=== PATIENT | female | born 1960 | race Caucasian/White ===

== ENCOUNTER 2021-05-24 06:59 | Emergency (ER) | payer OTHER ==
[2021-05-24 17:25] LABS: SARS-CoV-2 PCR by NAA Not Detected (NotDetected)
== END 2021-05-24 10:48 | disposition home or self-care (01) ==
LOC: CSHERS 06:59
DX: R06.02 Shortness of breath (principal); I45.10 Unspecified right bundle-branch block; I44.4 Left anterior fascicular block; R50.9 Fever, unspecified; R05 Cough; E66.01 Morbid (severe) obesity due to excess calories; Z20.822 Contact with and (suspected) exposure to COVID-19
CPT/HCPCS: 71045; 93005; U0003; U0005

== ENCOUNTER 2022-11-12 11:36 | Inpatient (IN) | payer OTHER ==
[2022-11-12 12:16] LABS: #Eosinphils 0.2 10x3/uL (0.0-0.5); #Neutrophils 8.5 10x3/uL (1.5-8.4); %Basophils 0.2 % (0.0-2.0); %Eosinophils 2.2 % (0.0-6.0); %Lymphocytes 9.3 % (18.0-47.0); %Monocytes 9.5 % (0.0-10.0); Hemoglobin 9.3 g/dL (12.0-15.5); Mean Corpuscular HGB CONC 30.1 g/dL (32.0-36.0); Mean Corpuscular Hemoglobin 27.5 pg (27.0-33.0); Mean Corpuscular Volume 91.4 fl (81.6-98.3); Mean Platelet Volume 10.7 fl (7.4-10.4); Platelet Count 209 10x3/uL (150-450); RBC Distribution Width 14.7 % (11.5-14.5); Red Blood Cell (RBC) Count 3.38 10x6/uL (3.90-5.03); White Blood Cell (WBC) Count 10.9 10x3/uL (3.5-10.5)
[2022-11-12 12:29] LABS: ALT (SGPT) 21 U/L (8-55); AST (SGOT) 35 U/L (5-34); Albumin 3.3 g/dL (3.5-5.0); Alkaline Phosphatase 121 U/L (40-110); Anion Gap 20 mmol/L (10-20); BUN (Urea Nitrogen) 40 mg/dL (9.8-20.1); Bilirubin, Total 1.3 mg/dL (0.2-1.2); Calc. Creatinine Clearance 0 mL/min (70-130); Calcium 8.4 mg/dL (7.8-10.44); Carbon Dioxide 22 mmol/L (22-29); Chloride 97 mmol/L (98-107); Estimated GFR 25; Globulin 3.1 g/dL (2.4-3.5); Glucose 123 mg/dL (70-105); Potassium 4.2 mmol/L (3.5-5.1); Protein, Total 6.4 g/dL (6.0-8.3); Sodium 135 mmol/L (136-145)
[2022-11-12] MEDS ORDERED: Cefepime 2 GM VIAL ONE (12:53)
[2022-11-12] MEDS ORDERED: Vancomycin 1 GM VIAL ONE ×2 (12:55→14:13)
[2022-11-12] MEDS ORDERED: NOREPINEPHRINE 8 MG/250 ML-D5W 250 ML ONE (13:17)
[2022-11-12] MEDS ORDERED: Atropine Sulfate 1 mg/10 ml Syringe ONE (13:26)
[2022-11-12 15:01] LABS: Bilirubin 1+ (Negative); Blood, Urine Negative (Negative); Clarity Cloudy (Clear); Glucose, Urine (Dipstick) Normal (Negative); Ketone, Urine Negative (Negative); Leukocyte 100 (Negative); Nitrite Negative (Negative); Protein, Urine (Dipstick) 100 mg/dl (Neg-Trace)
[2022-11-12 15:08] LABS: Bacteria/HPF 1+ HPF (None Seen); Mucous/LPF 1+ LPF (<2+); RBC/HPF 0-3 HPF (0-3); Squamous Epithelial 0-3 HPF (0-3)
[2022-11-12 15:19] LABS: Lactic Acid 1.7 mmol/L (0.5-2.2)
[2022-11-12] MEDS ORDERED: NOREPINEPHRINE 8 MG/250 ML-D5W 250 ML IVPB PRN (15:37)
[2022-11-12] MEDS ORDERED: Levothyroxine Sodium 200 MCG VIAL IVP SCH (15:45)
[2022-11-12 15:50] LABS: SARS-CoV-2 NAA Rapid Test DETECTED (NotDetected)
[2022-11-12 16:12] LABS: Free T4 (Free Thyroxine) 1.07 ng/dL (0.70-1.48); Thyroid Stimulating Hormone 3.2591 uIU/mL (0.35-4.94)
[2022-11-12] MEDS ORDERED: Meropenem 1 GM in Sodium Chloride 0.9% 100 ML IVPB SCH (17:30)
[2022-11-12] MEDS: Albumin 25% 25 GM/100 ML BOT IVPB SCH (17:33)
[2022-11-12] MEDS: Furosemide 40 MG/4 ML VIAL SLOW IVP SCH (21:17)
[2022-11-12] MEDS: Hydrocortisone Sod Succ/PF 100 mg/2 ml Vial IVP SCH (21:17)
[2022-11-13] MEDS: Albumin 25% 25 GM/100 ML BOT IVPB SCH ×4 (00:32→22:48)
[2022-11-13] MEDS: Meropenem 1 GM in Sodium Chloride 0.9% 100 ML IVPB SCH ×3 (01:06→17:48)
[2022-11-13 04:15] LABS: #Monocytes 0.6 10x3/uL (0.0-1.1); #Neutrophils 11.7 10x3/uL (1.5-8.4); %Basophils 0.1 % (0.0-2.0); %Eosinophils 0.2 % (0.0-6.0); %Monocytes 4.7 % (0.0-10.0); %Neutrophils 89.4 % (40.0-75.0); Mean Corpuscular HGB CONC 30.8 g/dL (32.0-36.0); Mean Corpuscular Hemoglobin 27.4 pg (27.0-33.0); Mean Platelet Volume 10.8 fl (7.4-10.4); Platelet Count 252 10x3/uL (150-450); RBC Distribution Width 14.9 % (11.5-14.5); Red Blood Cell (RBC) Count 3.65 10x6/uL (3.90-5.03); White Blood Cell (WBC) Count 13.1 10x3/uL (3.5-10.5)
[2022-11-13 04:29] LABS: ALT (SGPT) 36 U/L (8-55); AST (SGOT) 50 U/L (5-34); Albumin 3.7 g/dL (3.5-5.0); Alkaline Phosphatase 138 U/L (40-110); Anion Gap 16 mmol/L (10-20); BUN (Urea Nitrogen) 42 mg/dL (9.8-20.1); Calc. Creatinine Clearance 91 mL/min (70-130); Calcium 9.2 mg/dL (7.8-10.44); Carbon Dioxide 25 mmol/L (22-29); Chloride 97 mmol/L (98-107); Estimated GFR 27; Globulin 3.6 g/dL (2.4-3.5); Glucose 194 mg/dL (70-105); Potassium 4.4 mmol/L (3.5-5.1); Protein, Total 7.3 g/dL (6.0-8.3); Sodium 134 mmol/L (136-145)
[2022-11-13] MEDS: Hydrocortisone Sod Succ/PF 100 mg/2 ml Vial IVP SCH ×3 (05:59→21:22)
[2022-11-13] MEDS ORDERED: Levothyroxine 100 MCG SDV IVP SCH (06:00)
[2022-11-13] MEDS: Furosemide 40 MG/4 ML VIAL SLOW IVP SCH ×2 (08:31→21:21)
[2022-11-13] MEDS ORDERED: Docusate 100 MG CAP PO PRN (17:27)
[2022-11-13] MEDS ORDERED: Diclofenac 1% 100 GM GEL TP PRN (18:07)
[2022-11-13] MEDS: Gabapentin 300 MG CAP PO SCH (21:20)
[2022-11-13] MEDS: Atorvastatin Calcium 20 MG TAB PO SCH (21:20)
[2022-11-13] MEDS: Acetaminophen/Codeine 30-300mg Tablet PO PRN (21:20)
[2022-11-13] MEDS: Benzonatate 100 MG CAP PO PRN (22:48)
[2022-11-13] MEDS ORDERED: Bisacodyl 10 MG SUPP PR SCH (23:45)
[2022-11-14] MEDS: Meropenem 1 GM in Sodium Chloride 0.9% 100 ML IVPB SCH ×2 (02:13→10:46)
[2022-11-14 04:05] LABS: ALT (SGPT) 24 U/L (8-55); AST (SGOT) 27 U/L (5-34); Albumin 3.7 g/dL (3.5-5.0); Alkaline Phosphatase 105 U/L (40-110); Anion Gap 17 mmol/L (10-20); BUN (Urea Nitrogen) 40 mg/dL (9.8-20.1); Bilirubin, Total 0.8 mg/dL (0.2-1.2); Calc. Creatinine Clearance 119 mL/min (70-130); Calcium 9.1 mg/dL (7.8-10.44); Carbon Dioxide 26 mmol/L (22-29); Chloride 98 mmol/L (98-107); Estimated GFR 37; Globulin 3.4 g/dL (2.4-3.5); Glucose 213 mg/dL (70-105); Potassium 4.5 mmol/L (3.5-5.1); Protein, Total 7.1 g/dL (6.0-8.3); Sodium 136 mmol/L (136-145)
[2022-11-14 04:11] LABS: #Monocytes 0.6 10x3/uL (0.0-1.1); #Neutrophils 8.1 10x3/uL (1.5-8.4); %Basophils 0.1 % (0.0-2.0); %Lymphocytes 4.8 % (18.0-47.0); %Monocytes 6.1 % (0.0-10.0); %Neutrophils 87.9 % (40.0-75.0); Hemoglobin 9.7 g/dL (12.0-15.5); Mean Corpuscular HGB CONC 31.2 g/dL (32.0-36.0); Mean Corpuscular Hemoglobin 27.7 pg (27.0-33.0); Mean Corpuscular Volume 88.9 fl (81.6-98.3); Mean Platelet Volume 10.8 fl (7.4-10.4); Platelet Count 192 10x3/uL (150-450); RBC Distribution Width 14.8 % (11.5-14.5); White Blood Cell (WBC) Count 9.2 10x3/uL (3.5-10.5)
[2022-11-14] MEDS: Hydrocortisone Sod Succ/PF 100 mg/2 ml Vial IVP SCH (05:10)
[2022-11-14] MEDS: Albumin 25% 25 GM/100 ML BOT IVPB SCH ×3 (05:10→17:40)
[2022-11-14] MEDS: Aspirin 81 mg Enteric Coated Tablet PO SCH (08:03)
[2022-11-14] MEDS: Gabapentin 300 MG CAP PO SCH ×3 (08:03→22:40)
[2022-11-14] MEDS: Loratadine 10 MG TAB PO SCH (08:03)
[2022-11-14] MEDS: Sertraline 100 MG TAB PO SCH (08:03)
[2022-11-14] MEDS: Ascorbic Acid 500 mg Chewable Tablet PO SCH (08:03)
[2022-11-14] MEDS: Polyethylene Glycol 3350 17 GM Packet PO SCH (08:04)
[2022-11-14] MEDS: Furosemide 40 MG/4 ML VIAL SLOW IVP SCH ×2 (08:06→22:39)
[2022-11-14] MEDS ORDERED: Lansoprazole 3 MG/ML ORAL SUSPENSION PO SCH (09:00)
[2022-11-14] MEDS: Aripiprazole 10 MG TAB PO SCH (10:07)
[2022-11-14] MEDS: Benzonatate 100 MG CAP PO PRN ×2 (10:07→22:42)
[2022-11-14] MEDS ORDERED: Dextrose 5% in Water 1,000 ML IV PRN (17:24)
[2022-11-14] MEDS ORDERED: Dextrose 50% Abboject 50 ML SYRINGE SLOW IVP PRN (17:24)
[2022-11-14] MEDS ORDERED: HumaLOG 300 UNITS/3 ML VIAL SC PRN (17:24)
[2022-11-14] MEDS: Atorvastatin Calcium 20 MG TAB PO SCH (22:40)
[2022-11-14] MEDS: Acetaminophen/Codeine 30-300mg Tablet PO PRN (22:40)
[2022-11-15] MEDS: Benzonatate 100 MG CAP PO PRN ×2 (05:40→21:51)
[2022-11-15 07:50] LABS: #Eosinphils 0.1 10x3/uL (0.0-0.5); #Monocytes 0.7 10x3/uL (0.0-1.1); #Neutrophils 6.8 10x3/uL (1.5-8.4); %Basophils 0.1 % (0.0-2.0); %Lymphocytes 7.6 % (18.0-47.0); %Monocytes 8.7 % (0.0-10.0); %Neutrophils 81.3 % (40.0-75.0); Hemoglobin 9.5 g/dL (12.0-15.5); Mean Corpuscular HGB CONC 29.6 g/dL (32.0-36.0); Mean Corpuscular Hemoglobin 27.5 pg (27.0-33.0); Mean Corpuscular Volume 92.8 fl (81.6-98.3); Platelet Count 232 10x3/uL (150-450); RBC Distribution Width 15.1 % (11.5-14.5); Red Blood Cell (RBC) Count 3.46 10x6/uL (3.90-5.03); White Blood Cell (WBC) Count 8.3 10x3/uL (3.5-10.5)
[2022-11-15 08:13] LABS: ALT (SGPT) 21 U/L (8-55); AST (SGOT) 18 U/L (5-34); Albumin 4.3 g/dL (3.5-5.0); Alkaline Phosphatase 103 U/L (40-110); Anion Gap 14 mmol/L (10-20); BUN (Urea Nitrogen) 39 mg/dL (9.8-20.1); Bilirubin, Total 0.6 mg/dL (0.2-1.2); Calc. Creatinine Clearance 133 mL/min (70-130); Calcium 9.6 mg/dL (7.8-10.44); Carbon Dioxide 32 mmol/L (22-29); Chloride 99 mmol/L (98-107); Estimated GFR 42; Globulin 3.4 g/dL (2.4-3.5); Glucose 156 mg/dL (70-105); Protein, Total 7.7 g/dL (6.0-8.3); Sodium 141 mmol/L (136-145)
[2022-11-15] MEDS: Gabapentin 300 MG CAP PO SCH ×3 (08:29→21:41)
[2022-11-15] MEDS: Loratadine 10 MG TAB PO SCH (08:30)
[2022-11-15] MEDS: Furosemide 40 MG/4 ML VIAL SLOW IVP SCH (08:30)
[2022-11-15] MEDS: Dexamethasone 4 MG TAB PO SCH (08:30)
[2022-11-15] MEDS: Ascorbic Acid 500 mg Chewable Tablet PO SCH (08:30)
[2022-11-15] MEDS: Aripiprazole 10 MG TAB PO SCH (08:35)
[2022-11-15] MEDS: Aspirin 81 mg Enteric Coated Tablet PO SCH (08:35)
[2022-11-15] MEDS: Sertraline 100 MG TAB PO SCH (08:36)
[2022-11-15] MEDS: Polyethylene Glycol 3350 17 GM Packet PO SCH (08:37)
[2022-11-15 09:01] LABS: Hypochromia SLIGHT = 6-15 cells (100X) (0-5/hpf); Macrocytosis SLIGHT = 6-15 cells (100X) (0-5/hpf); Ovalocytes SLIGHT = 2-5 cells (100X) (0-1/hpf)
[2022-11-15 09:02] LABS: Polychromasia SLIGHT = 2-3 cells (100X) (0-2/hpf)
[2022-11-15 09:03] LABS: Platelet Morphology Comment Appears Adequate
[2022-11-15] MEDS: HumaLOG 300 UNITS/3 ML VIAL SC PRN (16:58)
[2022-11-15] MEDS: Atorvastatin Calcium 20 MG TAB PO SCH (21:41)
[2022-11-15] MEDS: Guaifenesin DM 100-10/5 ML UDCUP PO PRN (23:38)
[2022-11-16 05:09] LABS: ALT (SGPT) 18 U/L (8-55); AST (SGOT) 18 U/L (5-34); Albumin 3.7 g/dL (3.5-5.0); Alkaline Phosphatase 97 U/L (40-110); Anion Gap 13 mmol/L (10-20); BUN (Urea Nitrogen) 37 mg/dL (9.8-20.1); Bilirubin, Total 0.6 mg/dL (0.2-1.2); Calc. Creatinine Clearance 178 mL/min (70-130); Calcium 9.3 mg/dL (7.8-10.44); Carbon Dioxide 32 mmol/L (22-29); Chloride 100 mmol/L (98-107); Estimated GFR 59; Globulin 3.1 g/dL (2.4-3.5); Glucose 222 mg/dL (70-105); Potassium 4.4 mmol/L (3.5-5.1); Protein, Total 6.8 g/dL (6.0-8.3); Sodium 141 mmol/L (136-145)
[2022-11-16 05:21] LABS: Hemoglobin 8.8 g/dL (12.0-15.5); Mean Corpuscular HGB CONC 30.1 g/dL (32.0-36.0); Mean Corpuscular Hemoglobin 27.9 pg (27.0-33.0); Mean Corpuscular Volume 92.7 fl (81.6-98.3); Mean Platelet Volume 9.9 fl (7.4-10.4); Platelet Count 221 10x3/uL (150-450); RBC Distribution Width 15.4 % (11.5-14.5); Red Blood Cell (RBC) Count 3.15 10x6/uL (3.90-5.03); White Blood Cell (WBC) Count 6.5 10x3/uL (3.5-10.5)
[2022-11-16 05:29] VITALS: BMI 69.9
[2022-11-16 05:33] LABS: MDiff Complete? YES
[2022-11-16 06:50] LABS: Eosinophils 1 % (0-10); Lymphocytes 4 % (21-51); Monocytes 15 % (0-10); Neutrophil 80 % (42-75)
[2022-11-16 06:53] LABS: Hypochromia SLIGHT = 6-15 cells (100X) (0-5/hpf); Macrocytosis SLIGHT = 6-15 cells (100X) (0-5/hpf); Platelet Morphology Comment Appears Adequate
[2022-11-16] MEDS: Gabapentin 300 MG CAP PO SCH ×3 (08:38→20:22)
[2022-11-16] MEDS: Loratadine 10 MG TAB PO SCH (08:39)
[2022-11-16] MEDS: Ascorbic Acid 500 mg Chewable Tablet PO SCH (08:39)
[2022-11-16] MEDS: Aripiprazole 10 MG TAB PO SCH (08:39)
[2022-11-16] MEDS: Sertraline 100 MG TAB PO SCH (08:39)
[2022-11-16] MEDS: Dexamethasone 4 MG TAB PO SCH (08:39)
[2022-11-16] MEDS: Furosemide 40 MG TAB PO SCH (08:40)
[2022-11-16] MEDS: Aspirin 81 mg Enteric Coated Tablet PO SCH (08:40)
[2022-11-16] MEDS: Polyethylene Glycol 3350 17 GM Packet PO SCH (08:40)
[2022-11-16] MEDS: HumaLOG 300 UNITS/3 ML VIAL SC PRN ×2 (12:58→19:30)
[2022-11-16] MEDS: Guaifenesin DM 100-10/5 ML UDCUP PO PRN (20:22)
[2022-11-16] MEDS: Atorvastatin Calcium 20 MG TAB PO SCH (20:22)
[2022-11-17 05:07] LABS: #Monocytes 0.7 10x3/uL (0.0-1.1); #Neutrophils 7.1 10x3/uL (1.5-8.4); %Basophils 0.1 % (0.0-2.0); %Lymphocytes 5.7 % (18.0-47.0); %Monocytes 8.3 % (0.0-10.0); %Neutrophils 81.5 % (40.0-75.0); Hemoglobin 8.6 g/dL (12.0-15.5); Mean Corpuscular HGB CONC 29.2 g/dL (32.0-36.0); Mean Corpuscular Hemoglobin 27.3 pg (27.0-33.0); Mean Corpuscular Volume 93.7 fl (81.6-98.3); Mean Platelet Volume 9.9 fl (7.4-10.4); Platelet Count 231 10x3/uL (150-450); RBC Distribution Width 15.7 % (11.5-14.5); Red Blood Cell (RBC) Count 3.15 10x6/uL (3.90-5.03); White Blood Cell (WBC) Count 8.7 10x3/uL (3.5-10.5)
[2022-11-17 05:12] LABS: ALT (SGPT) 16 U/L (8-55); AST (SGOT) 16 U/L (5-34); Albumin 3.8 g/dL (3.4-4.8); Alkaline Phosphatase 91 U/L (40-110); Anion Gap 15 mmol/L (10-20); BUN (Urea Nitrogen) 35 mg/dL (9.8-20.1); Bilirubin, Total 0.6 mg/dL (0.2-1.2); Calc. Creatinine Clearance 181 mL/min (70-130); Calcium 9.3 mg/dL (7.8-10.44); Carbon Dioxide 33 mmol/L (23-31); Chloride 99 mmol/L (98-107); Estimated GFR 61; Globulin 2.9 g/dL (2.4-3.5); Glucose 253 mg/dL (80-115); Potassium 4.9 mmol/L (3.5-5.1); Protein, Total 6.7 g/dL (5.8-8.1); Sodium 142 mmol/L (136-145)
[2022-11-17] MEDS: Guaifenesin DM 100-10/5 ML UDCUP PO PRN (05:15)
[2022-11-17 07:04] LABS: Hypochromia SLIGHT = 6-15 cells (100X) (0-5/hpf); Macrocytosis SLIGHT = 6-15 cells (100X) (0-5/hpf); Microcytosis SLIGHT = 6-15 cells (100X) (0-5/hpf); Ovalocytes SLIGHT = 2-5 cells (100X) (0-1/hpf); Schistocytes SLIGHT = 2-5 cells (100X) (0-1/hpf)
[2022-11-17 07:05] LABS: Platelet Morphology Comment Appears Adequate; Stomatocytes SLIGHT = 2-5 cells (100X) (0-1/hpf)
[2022-11-17] MEDS: Acetaminophen/Codeine 30-300mg Tablet PO PRN (07:14)
[2022-11-17] MEDS: Benzonatate 100 MG CAP PO PRN (07:14)
[2022-11-17] MEDS ORDERED: Lantus 1000 UNITS/10 ML VIAL SC SCH (07:45)
[2022-11-17] MEDS: Gabapentin 300 MG CAP PO SCH ×3 (10:55→22:09)
[2022-11-17] MEDS: Aspirin 81 mg Enteric Coated Tablet PO SCH (10:56)
[2022-11-17] MEDS: Aripiprazole 10 MG TAB PO SCH (10:56)
[2022-11-17] MEDS: Dexamethasone 4 MG TAB PO SCH (10:57)
[2022-11-17] MEDS: Furosemide 40 MG TAB PO SCH (10:57)
[2022-11-17] MEDS: Sertraline 100 MG TAB PO SCH (10:57)
[2022-11-17] MEDS: Ascorbic Acid 500 mg Chewable Tablet PO SCH (10:57)
[2022-11-17] MEDS: Loratadine 10 MG TAB PO SCH (10:57)
[2022-11-17] MEDS: Polyethylene Glycol 3350 17 GM Packet PO SCH (10:58)
[2022-11-17] MEDS: Atorvastatin Calcium 20 MG TAB PO SCH (22:25)
[2022-11-18 05:41] LABS: #Monocytes 0.6 10x3/uL (0.0-1.1); #Neutrophils 8.7 10x3/uL (1.5-8.4); %Basophils 0.1 % (0.0-2.0); %Lymphocytes 6.9 % (18.0-47.0); %Monocytes 5.7 % (0.0-10.0); %Neutrophils 83.7 % (40.0-75.0); Hemoglobin 7.8 g/dL (12.0-15.5); Mean Corpuscular HGB CONC 29.4 g/dL (32.0-36.0); Mean Corpuscular Hemoglobin 27.3 pg (27.0-33.0); Mean Corpuscular Volume 92.7 fl (81.6-98.3); Mean Platelet Volume 10.2 fl (7.4-10.4); Platelet Count 213 10x3/uL (150-450); RBC Distribution Width 15.8 % (11.5-14.5); Red Blood Cell (RBC) Count 2.86 10x6/uL (3.90-5.03); White Blood Cell (WBC) Count 10.4 10x3/uL (3.5-10.5)
[2022-11-18 05:56] LABS: ALT (SGPT) 19 U/L (8-55); AST (SGOT) 29 U/L (5-34); Albumin 3.8 g/dL (3.4-4.8); Alkaline Phosphatase 91 U/L (40-110); Anion Gap 19 mmol/L (10-20); BUN (Urea Nitrogen) 34 mg/dL (9.8-20.1); Bilirubin, Total 0.5 mg/dL (0.2-1.2); Calc. Creatinine Clearance 187 mL/min (70-130); Calcium 9.1 mg/dL (7.8-10.44); Carbon Dioxide 29 mmol/L (23-31); Chloride 99 mmol/L (98-107); Estimated GFR 63; Globulin 3.4 g/dL (2.4-3.5); Glucose 253 mg/dL (80-115); Potassium 5.7 mmol/L (3.5-5.1); Protein, Total 7.2 g/dL (5.8-8.1); Sodium 141 mmol/L (136-145)
[2022-11-18 06:07] LABS: Anisocytosis SLIGHT = 6-15 cells (100X) (0-5/hpf)
[2022-11-18 06:08] LABS: Hypochromia SLIGHT = 6-15 cells (100X) (0-5/hpf); Platelet Morphology Comment Appears Adequate
[2022-11-18] MEDS: Loratadine 10 MG TAB PO SCH (10:19)
[2022-11-18] MEDS: Polyethylene Glycol 3350 17 GM Packet PO SCH (10:19)
[2022-11-18] MEDS: Gabapentin 300 MG CAP PO SCH (10:20)
[2022-11-18] MEDS: Ascorbic Acid 500 mg Chewable Tablet PO SCH (10:20)
[2022-11-18] MEDS: Aripiprazole 10 MG TAB PO SCH (10:20)
[2022-11-18] MEDS: Aspirin 81 mg Enteric Coated Tablet PO SCH (10:20)
[2022-11-18] MEDS: Furosemide 40 MG TAB PO SCH (10:21)
[2022-11-18] MEDS: Sertraline 100 MG TAB PO SCH (10:21)
[2022-11-18] MEDS: Dexamethasone 4 MG TAB PO SCH (10:22)
[2022-11-18 10:54] LABS: Potassium 5.1 mmol/L (3.5-5.1)
[2022-11-18] MEDS ORDERED: Fleet Enema 133 ML BOT PR SCH (11:45)
[2022-11-18 15:46] VITALS: BP 136/68; TEMP 97.9
[2022-11-20] MEDS ORDERED: Ergocalciferol 1.25 MG(50,000 UNITS) CAP PO SCH (09:00)
== END 2022-11-18 16:35 | disposition home or self-care (01) | DRG 871 ==
LOC: CSHERS 11:36 → CSHICU 15:24 → CSHTELE 11-14 18:27
PROVIDERS: ADMIT Internal Medicine; ATTEND Family Medicine
PROC: 8E0ZXY6 Isolation (ICD-10-PCS; principal; 2022-11-08)
PROC: 3E033XZ Introduction of Vasopressor into Peripheral Vein, Percutaneous Approach (ICD-10-PCS; 2022-11-08)
PROC: 3E03329 Introduction of Other Anti-infective into Peripheral Vein, Percutaneous Approach (ICD-10-PCS; 2022-11-08)
PROC: 30233J1 Transfusion of Nonautologous Serum Albumin into Peripheral Vein, Percutaneous Approach (ICD-10-PCS; 2022-11-08)
PROC: 5A09357 Assistance with Respiratory Ventilation, Less than 24 Consecutive Hours, Continuous Positive Airway Pressure (ICD-10-PCS; 2022-11-08)
PROC: 0T9B70Z Drainage of Bladder with Drainage Device, Via Natural or Artificial Opening (ICD-10-PCS; 2022-11-08)
DX: A41.89 Other specified sepsis (principal); I50.33 Acute on chronic diastolic (congestive) heart failure; R65.21 Severe sepsis with septic shock; J12.82 Pneumonia due to coronavirus disease 2019; U07.1 COVID-19; J96.21 Acute and chronic respiratory failure with hypoxia; J96.22 Acute and chronic respiratory failure with hypercapnia; E66.2 Morbid (severe) obesity with alveolar hypoventilation; N17.9 Acute kidney failure, unspecified; I45.2 Bifascicular block; I13.0 Hypertensive heart and chronic kidney disease with heart failure and stage 1 through stage 4 chronic kidney disease, or unspecified chronic kidney disease; Z68.44 Body mass index [BMI] 60.0-69.9, adult; R00.1 Bradycardia, unspecified; I27.20 Pulmonary hypertension, unspecified; F32.A Depression, unspecified; N18.9 Chronic kidney disease, unspecified; E11.22 Type 2 diabetes mellitus with diabetic chronic kidney disease; Z98.890 Other specified postprocedural states; Z88.2 Allergy status to sulfonamides; Z88.8 Allergy status to other drugs, medicaments and biological substances; Z79.899 Other long term (current) drug therapy; Z79.51 Long term (current) use of inhaled steroids; Z79.82 Long term (current) use of aspirin; Z79.4 Long term (current) use of insulin; Z90.49 Acquired absence of other specified parts of digestive tract
CPT/HCPCS: 36415; 36416; 51701; 71045; 80053; 81003; 81015; 82533; 83605; 83880; 84439; 84443; 84481; 84484; 85025; 86141; 87040; 87086; 93005; 94660; 94760; 94799; 96374; 96375; 97139; J0461; J0692; J1650; J1720; J1815; J1940; J2185; J3370; J3490; J8540; P9047